=== PATIENT | female | born 1945 | race Two or more races ===

== ENCOUNTER 2025-06-07 15:29 | Outpatient (CLI) | payer OTHER | END 2025-06-07 15:35 | disposition home or self-care (01) | LOC: RAD 15:29 | PROVIDERS: ATTEND Obstetrics & Gynecology Gynecologic Oncology | DX: C54.1 Malignant neoplasm of endometrium (principal); G89.3 Neoplasm related pain (acute) (chronic); R97.8 Other abnormal tumor markers; D64.9 Anemia, unspecified; N39.0 Urinary tract infection, site not specified; R79.1 Abnormal coagulation profile ==